=== PATIENT | female | born 1995 | race Hispanic/Latino ===

== ENCOUNTER 2020-02-13 14:36 | Emergency (ER) | payer MEDICAID, OTHER ==
[2020-02-14 12:22] LABS: SARS-CoV-2 MS2 Positive; SARS-CoV-2 N Gene Positive; SARS-CoV-2 S Gene Positive; SARS-CoV-2 orf1ab Positive
== END 2020-02-13 14:54 | disposition home or self-care (01) ==
LOC: ERS 14:36
DX: U07.1 COVID-19 (principal)
CPT/HCPCS: 87635; 99283; U0003